=== PATIENT | female | born 1945 | race African-American/Black ===

== ENCOUNTER 2017-07-29 08:34 | Inpatient (IN) | payer OTHER ==
[~2017-07-29] VITALS: Ht 175.3 cm; Wt 61.2 kg
--- NOTE | ~2017-07-29 | EKG ---
[address] [place] [address] ELECTROCARDIOGRAM REPORT Name: ABRAM STACY Room #: 170-1 ADM IN M.R.#: [id number] Admission: 07/29/17 Attend Phys: Speedy Mauricio MD Discharge: Date of : 47 Report #: [id number] THIS REPORT FOR: //name// [facility] ED Test Date: 2017-07-29 Test Time: 09:19:56 Pat Name: ABRAM STACY Department: Room: Gender: F Assistant Maintenance Manager: Nae DC : 1945 Requested By: Shalonda Humphrey Order Number: [id number] MD: Abisai Castano Measurements Intervals [place] Rate: 111 P: 87 PA: 175 QRS: 79 QRSD: 90 T: 71 QT: 322 QTc: 438 Interpretive Statements Sinus tachycardia Right atrial enlargement Baseline wander in lead(s) V3 Compared to ECG 11/24/2015 12:32:09 No significant changes Electronically Signed On 07-29-2017 10:24:14 CDT by Abisai Castano [email or web address] <ELECTRONICALLY SIGNED> By: Abisai Castano MD, [facility] 07/29/17 1024 8 8 Abisai Castano MD, [facility] /EPI
[~2017-07-29 08:34] MED LIST: ACCUNEB SO1.25 MG/1 INH; BREO ELLIPTA 21 EACH IH; COMBIVENT INH; DOXYCYCLINE 10100 M1 PO; GUAIFENESIN400 MG PO; MUCINEX TA600 MG/TA2 PO; PREDNISONE 1 MG1 M1 PO; PREDNISONE 20 M20 M1 PO; PREDNISONE 20 M20 MG PO; SPIRIVA INH; VENTOLIN HFA 1818 GM INH
[2017-07-29 08:57] LABS: BE(vivo) 0.4 mmol/L (-2 to +3); PCO2 50.6 mmHg (35.0-45.0); pH 7.345 (7.360-7.450); sO2 84.6 % (92.0-98.0)
[2017-07-29 09:05] LABS: ABSOLUTE NEUTROPHILS 3.4 thou/uL (1.4-8.2); BASOPHILS 0.8 % (0.0-2.0); EOSINOPHILS 2.5 % (0.0-3.0); HEMATOCRIT 45.5 % (37.0-47.0); HEMOGLOBIN 15.3 gm/dL (12.0-15.0); LYMPHOCYTES 19.8 % (24.0-44.0); MCH 28.2 pg (26.0-34.0); MCHC 33.6 g/dL (28.0-37.0); MCV 83.9 fL (80.0-100.0); MONOCYTES 6.7 % (1.0-8.0); PLATELET COUNT 119 thou/uL (150-400); POLYS 70.2 % (36.0-66.0); RBC 5.43 mil/uL (4.20-5.00); RDW 15.3 % (10.5-14.5); WBC 4.8 thou/uL (4.0-11.0)
[2017-07-29 09:13] LABS: CALCIUM 9.8 mg/dL (8.5-10.1); CREATININE 0.8 mg/dL (0.6-1.0); POTASSIUM 4.2 mmol/L (3.5-5.1)
[2017-07-29 10:19] VITALS: BP 209/127
[2017-07-29 10:28] VITALS: BP 131/82
[2017-07-29 11:03] VITALS: BP 143/83
[2017-07-29 12:21] VITALS: BP 176/87
[2017-07-29 15:53] VITALS: BP 120/71
[2017-07-29 19:52] VITALS: BP 128/59
[2017-07-30 04:12] VITALS: BP 112/50
[2017-07-30 06:27] LABS: HEMATOCRIT 40.9 % (37.0-47.0); HEMOGLOBIN 13.4 gm/dL (12.0-15.0); MCHC 32.7 g/dL (28.0-37.0); MCV 85.6 fL (80.0-100.0); RBC 4.77 mil/uL (4.20-5.00); RDW 15.3 % (10.5-14.5); WBC 6.8 thou/uL (4.0-11.0)
[2017-07-30 06:39] LABS: CALCIUM 9.7 mg/dL (8.5-10.1); POTASSIUM 4.7 mmol/L (3.5-5.1)
[2017-07-30 07:24] VITALS: BP 112/41
[2017-07-30 16:35] VITALS: BP 119/56
[2017-07-30 20:12] VITALS: BP 128/52
[2017-07-31 03:30] VITALS: BP 132/52
[2017-07-31 05:12] LABS: ABSOLUTE NEUTROPHILS 9.8 thou/uL (1.4-8.2); BASOPHILS 0.4 % (0.0-2.0); HEMOGLOBIN 12.6 gm/dL (12.0-15.0); LYMPHOCYTES 5.5 % (24.0-44.0); MCH 27.7 pg (26.0-34.0); MCHC 32.4 g/dL (28.0-37.0); MCV 85.6 fL (80.0-100.0); PLATELET COUNT 117 thou/uL (150-400); POLYS 92.1 % (36.0-66.0); RBC 4.55 mil/uL (4.20-5.00); RDW 15.3 % (10.5-14.5); WBC 10.6 thou/uL (4.0-11.0)
[2017-07-31 05:19] LABS: CALCIUM 9.2 mg/dL (8.5-10.1); CREATININE 0.9 mg/dL (0.6-1.0)
[2017-07-31 05:35] LABS: LARGE PLATELETS FEW
[2017-07-31] MEDS ORDERED: PREDNISONE 10 M10 MG PO (07:45)
[2017-07-31] MEDS ORDERED: LEVAQUIN 500 M500 M2 PO (07:57)
[2017-07-31] MEDS ORDERED: DALIRESP250 MCG PO (07:57)
[2017-07-31 08:00] VITALS: BP 121/61
[2017-07-31 13:36] VITALS: BP 121/61
== END 2017-07-31 15:04 | disposition home or self-care (01) | DRG 871 ==
LOC: ER 08:34 → 4W 10:07 → EROBS 10:07 → 4W 11:00 → ENTRNSPT 07-31 14:55 → EDTRNSPTSTS 07-31 14:57 → 4W 07-31 15:04
PROVIDERS: Emergency Medicine; Family Medicine; Hospitalist
DX: A41.9 Sepsis, unspecified organism (principal); J96.01 Acute respiratory failure with hypoxia; J44.1 Chronic obstructive pulmonary disease with (acute) exacerbation; F17.210 Nicotine dependence, cigarettes, uncomplicated; Z79.51 Long term (current) use of inhaled steroids; Z79.899 Other long term (current) drug therapy
CPT/HCPCS: 10045

== ENCOUNTER → 2017-09-19 | Outpatient (CLI) | payer OTHER ==
[~2017-09-19] MED LIST changes: +DALIRESP250 MCG PO; +LEVAQUIN 500 M500 M2 PO; +PREDNISONE 10 M10 MG PO
== END ==
LOC: ULTRA 12:39
DX: I73.9 Peripheral vascular disease, unspecified (principal); M79.672 Pain in left foot